=== PATIENT | female | born 2000 | race Caucasian/White ===

== ENCOUNTER 2023-06-02 21:41 | Emergency (ER) | payer OTHER ==
[2023-06-02 21:52] VITALS: RESP 18; TEMP 98.2; BMI 21.7
[2023-06-02 23:08] VITALS: BP 112/50
[2023-06-03 07:30] VITALS: PULSE 94
== END 2023-06-02 23:13 | disposition home or self-care (01) ==
LOC: JER 21:41
DX: S09.90XA Unspecified injury of head, initial encounter (principal); R00.2 Palpitations; F12.90 Cannabis use, unspecified, uncomplicated; W22.8XXA Striking against or struck by other objects, initial encounter; Y92.9 Unspecified place or not applicable
CPT/HCPCS: 70450-TC; 93005; 93010; 99284-25